=== PATIENT | male | born 1950 | race Caucasian/White ===

== ENCOUNTER 2017-01-02 04:50 | Inpatient (IN) | payer OTHER ==
[~2017-01-02] VITALS: Ht 185.4 cm; Wt 58.4 kg
[~2017-01-02 04:50] MED LIST: ACIDOPHILUS PROB1 MG PO; ADVAIR 250/501 DISK IH; ADVAIR 250/501 DISK PO; ADVAIR HFA120 INHALA IH; AEROECLIPSE1 EACH MC; AMITRIPTYLINE150 MG PO; AMOX TR-K CLV1 EAC4 PO; ASPIRIN E.C.81 M1 PO; AUGMENTIN875 MG PO; Antivert PO; CARDIZEM CD,CA120 MG PO; CARDIZEM30 MG PO; CELEBREX200 MG PO; CLONAZEPAM1 MG PO; COLACE100 MG PO; COMBIVENT RESPIM4 GM IH; Ceftin PO; Colace PO; DALIRESP500 MCG PO; DILTIAZEM 24HR120 MG PO; DULERA 200 MCG/13 GM IH; DUONEB 2.5-0.5 M3 ML AEROSOL; DUONEB 2.5-0.5 M3 ML IH; DuoNeb IH; EVOXAC30 MG PO; Elavil PO; FEOSOL325 MG PO; FEVERALL650 M1 PR; FLORASTOR250 MG PO; GABAPENTIN300 MG PO; GUMMI BEAR MUL1 EACH PO; GUMMY SWIRLS1 EACH PO; HALOPERIDOL2 MG/1 ML PO; HYDRODIURIL,O12.5 M2 PO; HYOSCYAMINE0.125 M2 PO; IPRATR-ALBUTEROL3 ML IH; IRON 100 PLUS1 EACH PO; IRON325 MG PO; KADIAN30 MG PO; KAPIDEX60 MG PO; KLONOPIN1 MG PO; KlonoPIN PO; LANSOPRAZOLE30 MG PO; LAXATIVE SUPPOS10 MG PR; LEVAQUIN250 MG PO; LEVAQUIN500 MG PO; LEVAQUIN750 MG PO; LEVOCETIRIZINE D5 MG PO; LEVOFLOXACIN750 MG PO; LORAZEPAM0.5 MG PO; LYRICA75 MG PO; MEGACE 40 MG40 MG/ML PO; MEGACE ES625 MG/5 M PO; MEGESTROL625 MG/5 M PO; METAXALL800 MG PO; METOCLOPRAMIDE10 MG PO; METOPROLOL TART25 MG PO; MICRO-K10 ME2 PO; MIRALAX17 GM PO; MIRTAZAPINE30 MG PO; MORPHINE CON20 MG/M1 PO; MORPHINE SULFAT30 M2 PO; MORPHINE SULFAT60 MG PO; MUCINEX600 MG PO; MULTI-VITAMIN1 EAC3 PO; NICODERM CQ1 EAC2 TD; NICOTINE PATCH1 EAC2 TD; OXYCODONE HCL10 MG PO; OXYCODONE HCL30 MG PO; OXYCODONE5 MG PO; OXYCONTIN60 MG; OXYCONTIN60 MG PO; POLYETHYLENE GL17 GM PO; PRAVACHOL40 MG PO; PRAVASTATIN SOD40 MG PO; PREDNISONE10 MG PO; PREDNISONE20 MG PO; PREDNISONE5 MG PO; PREVACID; PREVACID30 MG PO; PRILOSEC OTC20 MG PO; PROAIR HFA8.5 GM IH; PROBIOTIC1 EAC1 PO; PROCHLORPERAZIN10 MG PO; REGLAN10 MG PO; REMERON30 M2 PO; SENIOR PROBIOT1 EACH PO; SENNA8.6 M1 PO; SENOKOT,SENN1 TABLET PO; SLOW RELEASE I142 M1 PO; SPIRIVA1 INHALATI IH; THEO-24200 MG PO; THEO-DUR,THEOC200 MG PO; THEOPHYLLINE A200 M1 PO; THEOPHYLLINE A300 M1 PO; TOPAMAX50 MG PO; Tylenol Regular Stre PO; WELLBUTRIN100 MG PO; XYZAL5 MG PO; Zithromax PO
[2017-01-02 05:47] LABS: HEMATOCRIT 39.6 % (38.0-50.0); MCH 24.3 PG (29.0-34.0); MCHC 31.1 G/DL (30.0-36.0); MCV 78.3 FL (86-99); MEAN PLAT.VOLUME 9.7 uM^3 (9.0-12.4); PLATELET COUNT 337 K/uL (156-360); RBC DIS.WIDTH-CV 16.7 % (11.8-14.6); RBC DIS.WIDTH-SD 46.5 % (39-53); RED BLOOD COUNT 5.06 M/uL (4.00-5.50); WHITE BLOOD COUNT 20.4 K/uL (4.1-10.2)
[2017-01-02 05:50] LABS: EOSINOPHIL (%) 0 % (0-5); IMMATURE GRANULOCYTE (%) 0.3 % (0.0-0.7); IMMATURE GRANULOCYTE COUNT 0.6 K/uL; LYMPHOCYTE COUNT 1.1 K/uL (1.0-2.8); MONOCYTE (%) 4.6 % (3-12); MONOCYTE COUNT 0.9 K/uL (0-0.8); NEUTROPHIL (%) 89.8 % (45-76); NEUTROPHIL COUNT 18.3 K/uL (1.8-6.4)
[2017-01-02 05:58] LABS: CHLORIDE 104 mEq/L (99-109); POTASSIUM 3.6 mEq/L (3.7-5.4); SODIUM 142 mEq/L (136-147)
[2017-01-02 06:00] LABS: GLUCOSE 134 mg/dL (70-99)
[2017-01-02 06:01] LABS: ANION GAP 14 MEQ/L (2-14)
[2017-01-02 06:02] LABS: TOTAL BILIRUBIN 0.8 mg/dL (0.0-1.0)
[2017-01-02 06:03] LABS: ALKALINE PHOSPHATASE 106 IU/L (3-129)
[2017-01-02 06:04] LABS: GFR ESTIMATE (CALCULATED) > 59 mL/min/
[2017-01-02 06:05] LABS: UREA NITROGEN (BUN) 18 mg/dL (9-23)
[2017-01-02 06:07] LABS: LIPASE 4 U/L (1.0-51.0); TROP-I INTERPRETATION NEGATIVE; TROPONIN-I < 0.01 ng/mL (0.0-0.30)
[2017-01-02] MEDS ORDERED: ATROVENT H200 INHALA IH (06:08)
[2017-01-02] MEDS ORDERED: SYMBICORT60 INHALAT IH (06:09)
[2017-01-02] MEDS ORDERED: GRALISE600 MG PO (06:14)
[2017-01-02] MEDS ORDERED: MILLIPRED5 MG PO (06:17)
[2017-01-02] MEDS ORDERED: PAIN RELIEF650 MG PO (06:18)
[2017-01-02] MEDS ORDERED: CONSTULOSE10 GM/15 M PO (06:19)
[2017-01-02] MEDS ORDERED: MILK OF MAGN PO ×2 (06:19)
[2017-01-02 06:43] LABS: INFLUENZA A VIRAL ANTIGEN NEGATIVE; INFLUENZA B VIRAL ANTIGEN NEGATIVE
[2017-01-02 09:10] LABS: PREALBUMIN 15.1 mg/dL (10-40)
[2017-01-02 10:30] VITALS: BP 154/85
[2017-01-02] MEDS ORDERED: FEOSOL325 MG PO (16:14)
[2017-01-03 06:25] LABS: HEMATOCRIT 34.4 % (38.0-50.0); MCH 24.2 PG (29.0-34.0); MCHC 30.2 G/DL (30.0-36.0); MEAN PLAT.VOLUME 9.9 uM^3 (9.0-12.4); PLATELET COUNT 275 K/uL (156-360); RBC DIS.WIDTH-CV 16.6 % (11.8-14.6); RBC DIS.WIDTH-SD 48.3 % (39-53); WHITE BLOOD COUNT 14.4 K/uL (4.1-10.2)
[2017-01-03 06:54] LABS: ALKALINE PHOSPHATASE 73 IU/L (3-129); ANION GAP 11 MEQ/L (2-14); CHLORIDE 102 MEQ/L (99-109); GFR ESTIMATE (CALCULATED) > 59 mL/min/; POTASSIUM 3.9 MEQ/L (3.7-5.4); SAMPLE HEMOLYSIS CHECK 0; SAMPLE ICTERIC CHECK 0; SAMPLE LIPEMIA CHECK 0; SODIUM 137 MEQ/L (136-147); TOTAL BILIRUBIN 0.8 MG/DL (0.0-1.0); UREA NITROGEN (BUN) 9 mg/dL (9-23)
[2017-01-03 06:57] LABS: GLUCOSE 70 mg/dL (70-99)
[2017-01-03 08:04] LABS: INTERNAL CONTROL VALID? YES
[2017-01-04] MEDS ORDERED: AMOX TR-K CLV1 EAC4 PO (17:57)
[2017-01-04] MEDS ORDERED: METOCLOPRAMIDE10 MG PO (18:00)
== END 2017-01-04 19:13 | disposition hospice, home (50) | DRG 190 ==
LOC: EME → EDBD 04:50 → 5EAST 08:05 → EDOF 08:05 → 5EAST 10:25
PROVIDERS: Emergency Medicine; Internal Medicine
DX: J44.1 Chronic obstructive pulmonary disease with (acute) exacerbation (principal); J96.21 Acute and chronic respiratory failure with hypoxia; J69.0 Pneumonitis due to inhalation of food and vomit; F33.9 Major depressive disorder, recurrent, unspecified; R64 Cachexia; Z68.1 Body mass index [BMI] 19.9 or less, adult; M87.052 Idiopathic aseptic necrosis of left femur; R62.7 Adult failure to thrive; R13.10 Dysphagia, unspecified; Z51.5 Encounter for palliative care; Z66 Do not resuscitate; E87.6 Hypokalemia; D72.825 Bandemia; K59.00 Constipation, unspecified; K44.9 Diaphragmatic hernia without obstruction or gangrene; Z99.81 Dependence on supplemental oxygen; K21.9 Gastro-esophageal reflux disease without esophagitis; G89.29 Other chronic pain; F41.9 Anxiety disorder, unspecified; Z87.891 Personal history of nicotine dependence; Z82.49 Family history of ischemic heart disease and other diseases of the circulatory system; Z85.01 Personal history of malignant neoplasm of esophagus
CPT/HCPCS: 71020; 71275; 74177; 80053; 83605; 83690; 83880; 84134; 84484; 85025; 85027; 87040; 87449; 87502; 92526 GN; 92610 GN; 93005; 94640; 94640 76; 94799; 99202; 99281; 99285; J0456; J0696; J2405; J2543; J3370; J7030; J7050; S0030

== ENCOUNTER 2017-12-20 21:19 | Inpatient (IN) | payer OTHER ==
[~2017-12-20] VITALS: Ht 185.4 cm; Wt 69.8 kg
[~2017-12-20 21:19] MED LIST changes: +ATROVENT H200 INHALA IH; +CEFTIN500 MG PO; +CONSTULOSE10 GM/15 M PO; +GRALISE600 MG PO; +MILK OF MAGN PO; +MILLIPRED5 MG PO; +PAIN RELIEF650 MG PO; +PROTONIX40 MG PO; +SYMBICORT60 INHALAT IH
[2017-12-20 22:19] LABS: BASOPHIL (%) 0.2 % (0-1); EOSINOPHIL (%) 0.1 % (0-5); HEMATOCRIT 37.6 % (38.0-50.0); IMMATURE GRANULOCYTE (%) 0.6 % (0.0-0.7); LYMPHOCYTE (%) 4.7 % (15-42); LYMPHOCYTE COUNT 0.9 K/uL (1.0-2.8); MCH 22.5 PG (29.0-34.0); MCHC 29.3 G/DL (30.0-36.0); MONOCYTE (%) 5.2 % (3-12); NEUTROPHIL (%) 89.2 % (45-76); NEUTROPHIL COUNT 16.9 K/uL (1.8-6.4); PLATELET COUNT 484 K/uL (156-360); RBC DIS.WIDTH-CV 17.7 % (11.8-14.6); RBC DIS.WIDTH-SD 48.5 % (39-53); RED BLOOD COUNT 4.88 M/uL (4.00-5.50)
[2017-12-20 22:36] LABS: ALBUMIN 3.6 g/dL (3.2-4.8)
[2017-12-20 22:37] LABS: CHLORIDE 99 mEq/L (99-109); SODIUM 136 mEq/L (136-147)
[2017-12-20 22:39] LABS: GLUCOSE 91 mg/dL (70-99); TOTAL PROTEIN 7.1 g/dL (6.4-8.3)
[2017-12-20 22:41] LABS: TOTAL BILIRUBIN 1.5 mg/dL (0.0-1.0)
[2017-12-20 22:42] LABS: ALKALINE PHOSPHATASE 141 IU/L (3-129)
[2017-12-20 22:43] LABS: CREATININE 0.8 mg/dL (0.6-1.3); GFR ESTIMATE (CALCULATED) > 59 mL/min/ (58.99-99999)
[2017-12-20 22:44] LABS: AST (GOT) 10 IU/L (2-34); UREA NITROGEN (BUN) 15 mg/dL (9-23)
[2017-12-20 22:46] LABS: ALT (GPT) 17 IU/L (3-49)
[2017-12-20 22:53] LABS: TROP-I INTERPRETATION NEGATIVE; TROPONIN-I < 0.01 ng/mL (0.0-0.30)
[2017-12-20] MEDS ORDERED: PANTOPRAZOLE SO40 MG PO (23:35)
[2017-12-20] MEDS ORDERED: GABAPENTIN100 MG PO (23:37)
[2017-12-20] MEDS ORDERED: HYDROCHLOROTHIA25 MG PO (23:38)
[2017-12-20] MEDS ORDERED: SPIRIVA1 INHALATI IH (23:40)
[2017-12-20] MEDS ORDERED: PREDNISONE10 MG PO (23:40)
[2017-12-20] MEDS ORDERED: PREDNISONE1 MG PO (23:41)
[2017-12-20] MEDS ORDERED: DILTIAZEM 24HR120 MG PO (23:41)
[2017-12-21 01:08] LABS: BASE EXCESS -8.8 mEq/L (-3 to +3); BICARBONATE 16.6 mEq/L (22-26); COMMENTS - BLOOD GASES C; METHEMOGLOBIN 0.8 % (0-1.5); PCO2 33 mm Hg (35-45); PO2 81 mm Hg (80-100); SITE RB; pH 7.31 (7.35-7.45)
[2017-12-21 01:09] LABS: DEVICE NCH; O2 FLOW 10 L/MIN; TOTAL RESP RATE 21 resp/min
[2017-12-21 03:36] VITALS: BP 116/74
[2017-12-21 05:47] LABS: BASOPHIL (%) 0.2 % (0-1); EOSINOPHIL (%) 0.1 % (0-5); HEMATOCRIT 34.8 % (38.0-50.0); IMMATURE GRANULOCYTE (%) 0.9 % (0.0-0.7); LYMPHOCYTE (%) 1.5 % (15-42); LYMPHOCYTE COUNT 0.2 K/uL (1.0-2.8); MCH 21.9 PG (29.0-34.0); MCHC 28.7 G/DL (30.0-36.0); MCV 76.3 FL (86-99); MONOCYTE (%) 0.7 % (3-12); MONOCYTE COUNT 0.1 K/uL (0-0.8); NEUTROPHIL (%) 96.6 % (45-76); NEUTROPHIL COUNT 15.2 K/uL (1.8-6.4); PLATELET COUNT 438 K/uL (156-360); RBC DIS.WIDTH-CV 17.4 % (11.8-14.6); RBC DIS.WIDTH-SD 47.8 % (39-53); RED BLOOD COUNT 4.56 M/uL (4.00-5.50); WHITE BLOOD COUNT 15.8 K/uL (4.1-10.2)
[2017-12-21 06:20] LABS: CHLORIDE 102 MEQ/L (99-109); CREATININE 0.7 MG/DL (0.6-1.3); GFR ESTIMATE (CALCULATED) > 59 mL/min/ (58.99-99999); POTASSIUM 4.1 MEQ/L (3.7-5.4); SODIUM 136 MEQ/L (136-147); UREA NITROGEN (BUN) 16 mg/dL (9-23)
[2017-12-21 06:36] LABS: GLUCOSE 269 mg/dL (70-99)
[2017-12-21 08:54] VITALS: BP 131/84
[2017-12-21 11:45] VITALS: BP 147/82
[2017-12-21 16:52] VITALS: BP 135/81
[2017-12-21 18:55] VITALS: BP 137/78
[2017-12-21 23:31] VITALS: BP 149/88
[2017-12-22 03:40] VITALS: BP 155/89
[2017-12-22 06:21] LABS: BASOPHIL (%) 0.1 % (0-1); EOSINOPHIL (%) 0 % (0-5); HEMATOCRIT 34.9 % (38.0-50.0); HEMOGLOBIN 10.2 G/DL (12.5-16.6); IMMATURE GRANULOCYTE (%) 0.6 % (0.0-0.7); LYMPHOCYTE (%) 2.9 % (15-42); LYMPHOCYTE COUNT 0.5 K/uL (1.0-2.8); MCH 22.4 PG (29.0-34.0); MCHC 29.2 G/DL (30.0-36.0); MCV 76.5 FL (86-99); MONOCYTE (%) 2.9 % (3-12); MONOCYTE COUNT 0.5 K/uL (0-0.8); NEUTROPHIL (%) 93.5 % (45-76); PLATELET COUNT 415 K/uL (156-360); RBC DIS.WIDTH-CV 17.4 % (11.8-14.6); RBC DIS.WIDTH-SD 47.7 % (39-53); RED BLOOD COUNT 4.56 M/uL (4.00-5.50); WHITE BLOOD COUNT 16.1 K/uL (4.1-10.2)
[2017-12-22 06:30] LABS: ALBUMIN 3.4 G/DL (3.2-4.8); ALKALINE PHOSPHATASE 118 IU/L (3-129); ALT (GPT) 13 IU/L (3-49); AST (GOT) 11 IU/L (2-34); CHLORIDE 107 MEQ/L (99-109); CREATININE 0.6 MG/DL (0.6-1.3); GFR ESTIMATE (CALCULATED) > 59 mL/min/ (58.99-99999); GLUCOSE 176 mg/dL (70-99); POTASSIUM 4.2 MEQ/L (3.7-5.4); TOTAL BILIRUBIN 0.4 MG/DL (0.0-1.0); TOTAL PROTEIN 6.4 G/DL (6.4-8.3); UREA NITROGEN (BUN) 13 mg/dL (9-23)
[2017-12-22 06:32] LABS: SODIUM 143 MEQ/L (136-147)
[2017-12-22 07:16] VITALS: BP 145/95
[2017-12-22 11:17] VITALS: BP 134/85
[2017-12-22 16:09] VITALS: BP 137/88
[2017-12-23] VITALS: BP 147/88
[2017-12-23 06:48] LABS: BASOPHIL (%) 0.1 % (0-1); EOSINOPHIL (%) 0 % (0-5); HEMATOCRIT 30.4 % (38.0-50.0); HEMOGLOBIN 8.6 G/DL (12.5-16.6); IMMATURE GRANULOCYTE (%) 0.5 % (0.0-0.7); LYMPHOCYTE (%) 1.9 % (15-42); LYMPHOCYTE COUNT 0.3 K/uL (1.0-2.8); MCH 21.9 PG (29.0-34.0); MCHC 28.3 G/DL (30.0-36.0); MCV 77.4 FL (86-99); MONOCYTE (%) 2.1 % (3-12); MONOCYTE COUNT 0.3 K/uL (0-0.8); NEUTROPHIL (%) 95.4 % (45-76); NEUTROPHIL COUNT 15.3 K/uL (1.8-6.4); PLATELET COUNT 361 K/uL (156-360); RBC DIS.WIDTH-CV 17.3 % (11.8-14.6); RBC DIS.WIDTH-SD 48.9 % (39-53); RED BLOOD COUNT 3.93 M/uL (4.00-5.50)
[2017-12-23 07:20] LABS: ALBUMIN 3.2 G/DL (3.2-4.8); ALKALINE PHOSPHATASE 94 IU/L (3-129); ALT (GPT) 16 IU/L (3-49); AST (GOT) 14 IU/L (2-34); CHLORIDE 109 MEQ/L (99-109); CREATININE 0.7 MG/DL (0.6-1.3); GFR ESTIMATE (CALCULATED) > 59 mL/min/ (58.99-99999); GLUCOSE 164 mg/dL (70-99); POTASSIUM 4.4 MEQ/L (3.7-5.4); SODIUM 145 MEQ/L (136-147); TOTAL PROTEIN 5.8 G/DL (6.4-8.3); UREA NITROGEN (BUN) 19 mg/dL (9-23)
[2017-12-23 07:22] LABS: TOTAL BILIRUBIN 0.3 MG/DL (0.0-1.0)
[2017-12-23 07:55] VITALS: BP 153/93
[2017-12-23 09:49] LABS: IMM.RETIC FRACTION 16.9 % (3-19); RETIC HGB EQUIVALENT 23.5 (28-36)
[2017-12-23 12:16] LABS: FOLIC ACID (FOLATE) 8.5 NG/ML (5.0-22.0)
[2017-12-23 13:10] LABS: FERRITIN 73 NG/ML (22-322); IRON 15 MCG/DL (35-150); TRANSFERRIN (TIBC) 254.1 mg/dL (215-380); TRANSFERRIN SATUR. 6 % (20-55)
[2017-12-23 16:12] VITALS: BP 151/86
[2017-12-24] VITALS: BP 148/97
[2017-12-24 07:09] LABS: BASOPHIL (%) 0.1 % (0-1); EOSINOPHIL (%) 0 % (0-5); HEMOGLOBIN 8.7 G/DL (12.5-16.6); IMMATURE GRANULOCYTE (%) 0.7 % (0.0-0.7); LYMPHOCYTE (%) 2.3 % (15-42); LYMPHOCYTE COUNT 0.4 K/uL (1.0-2.8); MCH 22.5 PG (29.0-34.0); MCV 77.7 FL (86-99); MONOCYTE (%) 1.6 % (3-12); MONOCYTE COUNT 0.3 K/uL (0-0.8); NEUTROPHIL (%) 95.3 % (45-76); NEUTROPHIL COUNT 14.6 K/uL (1.8-6.4); PLATELET COUNT 308 K/uL (156-360); RBC DIS.WIDTH-CV 17.7 % (11.8-14.6); RBC DIS.WIDTH-SD 49.2 % (39-53); RED BLOOD COUNT 3.86 M/uL (4.00-5.50); WHITE BLOOD COUNT 15.3 K/uL (4.1-10.2)
[2017-12-24 07:34] VITALS: BP 164/88
[2017-12-24 07:42] LABS: ALBUMIN 3.1 G/DL (3.2-4.8); ALKALINE PHOSPHATASE 78 IU/L (3-129); ALT (GPT) 17 IU/L (3-49); AST (GOT) 11 IU/L (2-34); CHLORIDE 106 MEQ/L (99-109); CREATININE 0.6 MG/DL (0.6-1.3); GFR ESTIMATE (CALCULATED) > 59 mL/min/ (58.99-99999); GLUCOSE 173 mg/dL (70-99); POTASSIUM 3.7 MEQ/L (3.7-5.4); SODIUM 144 MEQ/L (136-147); TOTAL PROTEIN 5.9 G/DL (6.4-8.3); UREA NITROGEN (BUN) 23 mg/dL (9-23)
[2017-12-24 07:45] LABS: TOTAL BILIRUBIN 0.2 MG/DL (0.0-1.0)
[2017-12-24 15:48] VITALS: BP 135/81
[2017-12-24 23:46] VITALS: BP 165/96
[2017-12-25 06:38] LABS: BASOPHIL (%) 0.1 % (0-1); EOSINOPHIL (%) 0 % (0-5); HEMATOCRIT 29.6 % (38.0-50.0); HEMOGLOBIN 8.5 G/DL (12.5-16.6); IMMATURE GRANULOCYTE (%) 1.6 % (0.0-0.7); LYMPHOCYTE (%) 3.1 % (15-42); LYMPHOCYTE COUNT 0.4 K/uL (1.0-2.8); MCH 22.5 PG (29.0-34.0); MCHC 28.7 G/DL (30.0-36.0); MCV 78.5 FL (86-99); MONOCYTE (%) 1.1 % (3-12); MONOCYTE COUNT 0.2 K/uL (0-0.8); NEUTROPHIL (%) 94.1 % (45-76); NEUTROPHIL COUNT 13.3 K/uL (1.8-6.4); PLATELET COUNT 300 K/uL (156-360); RBC DIS.WIDTH-CV 17.6 % (11.8-14.6); RBC DIS.WIDTH-SD 50.1 % (39-53); RED BLOOD COUNT 3.77 M/uL (4.00-5.50); WHITE BLOOD COUNT 14.1 K/uL (4.1-10.2)
[2017-12-25 07:15] LABS: CHLORIDE 102 MEQ/L (99-109); CREATININE 0.6 MG/DL (0.6-1.3); GFR ESTIMATE (CALCULATED) > 59 mL/min/ (58.99-99999); GLUCOSE 165 mg/dL (70-99); POTASSIUM 4.1 MEQ/L (3.7-5.4); SODIUM 143 MEQ/L (136-147); UREA NITROGEN (BUN) 20 mg/dL (9-23)
[2017-12-25 08:18] VITALS: BP 186/93
[2017-12-25 16:43] VITALS: BP 159/85
[2017-12-26 00:03] VITALS: BP 174/92
[2017-12-26 06:50] LABS: BASOPHIL (%) 0.1 % (0-1); EOSINOPHIL (%) 0 % (0-5); HEMATOCRIT 30.1 % (38.0-50.0); HEMOGLOBIN 8.7 G/DL (12.5-16.6); IMMATURE GRANULOCYTE (%) 2.2 % (0.0-0.7); LYMPHOCYTE (%) 3.7 % (15-42); LYMPHOCYTE COUNT 0.5 K/uL (1.0-2.8); MCH 22.3 PG (29.0-34.0); MCHC 28.9 G/DL (30.0-36.0); MCV 77.2 FL (86-99); MONOCYTE (%) 2.5 % (3-12); MONOCYTE COUNT 0.4 K/uL (0-0.8); NEUTROPHIL (%) 91.5 % (45-76); NRBC (%) 0.1 /100 WBC (0-0); PLATELET COUNT 330 K/uL (156-360); RBC DIS.WIDTH-CV 17.3 % (11.8-14.6); RBC DIS.WIDTH-SD 48.2 % (39-53); WHITE BLOOD COUNT 14.2 K/uL (4.1-10.2)
[2017-12-26 07:03] LABS: CHLORIDE 99 MEQ/L (99-109); CREATININE 0.6 MG/DL (0.6-1.3); GFR ESTIMATE (CALCULATED) > 59 mL/min/ (58.99-99999); GLUCOSE 147 mg/dL (70-99); POTASSIUM 4.3 MEQ/L (3.7-5.4); SODIUM 141 MEQ/L (136-147); UREA NITROGEN (BUN) 17 mg/dL (9-23)
[2017-12-26 08:21] VITALS: BP 163/95
[2017-12-26 16:42] VITALS: BP 137/88
[2017-12-27] VITALS: BP 147/85
[2017-12-27 06:15] LABS: BASOPHIL (%) 0.1 % (0-1); EOSINOPHIL (%) 0 % (0-5); HEMOGLOBIN 8.7 G/DL (12.5-16.6); IMMATURE GRANULOCYTE (%) 1.9 % (0.0-0.7); LYMPHOCYTE COUNT 0.4 K/uL (1.0-2.8); MCH 22.3 PG (29.0-34.0); MCV 76.7 FL (86-99); MONOCYTE (%) 3.2 % (3-12); MONOCYTE COUNT 0.5 K/uL (0-0.8); NEUTROPHIL (%) 91.8 % (45-76); NEUTROPHIL COUNT 12.8 K/uL (1.8-6.4); NRBC (%) 0.1 /100 WBC (0-0); PLATELET COUNT 345 K/uL (156-360); RBC DIS.WIDTH-CV 17.6 % (11.8-14.6); RBC DIS.WIDTH-SD 48.4 % (39-53); RED BLOOD COUNT 3.91 M/uL (4.00-5.50)
[2017-12-27 06:39] LABS: CHLORIDE 99 MEQ/L (99-109); CREATININE 0.6 MG/DL (0.6-1.3); GFR ESTIMATE (CALCULATED) > 59 mL/min/ (58.99-99999); GLUCOSE 136 mg/dL (70-99); POTASSIUM 4.5 MEQ/L (3.7-5.4); SODIUM 140 MEQ/L (136-147); UREA NITROGEN (BUN) 20 mg/dL (9-23)
[2017-12-27 08:00] VITALS: BP 154/91
[2017-12-27 16:00] VITALS: BP 140/90
[2017-12-28 01:03] VITALS: BP 170/92
[2017-12-28 08:52] VITALS: BP 162/94
[2017-12-29 00:38] VITALS: BP 150/88
[2017-12-29 06:08] LABS: HEMATOCRIT 30.3 % (38.0-50.0); HEMOGLOBIN 8.9 G/DL (12.5-16.6); MCH 22.8 PG (29.0-34.0); MCHC 29.4 G/DL (30.0-36.0); MCV 77.7 FL (86-99); PLATELET COUNT 343 K/uL (156-360); RBC DIS.WIDTH-CV 18.4 % (11.8-14.6); RBC DIS.WIDTH-SD 49.9 % (39-53)
[2017-12-29 07:30] VITALS: BP 157/94
[2017-12-29] MEDS ORDERED: CYANOCOBALAM1000 MCG PO (12:02)
[2017-12-29] MEDS ORDERED: FERROUS SULFAT325 MG PO (12:02)
[2017-12-29] MEDS ORDERED: PREDNISONE10 MG PO (12:02)
[2017-12-29] MEDS ORDERED: AMOX TR-K CLV1 EAC4 PO (12:02)
[2017-12-29] MEDS ORDERED: FOLIC ACID1 MG PO (12:02)
[2017-12-29] MEDS ORDERED: BISACODYL5 MG PO (12:02)
[2017-12-29] MEDS ORDERED: POLYETHYLENE GL17 GM PO (12:02)
[2017-12-29] MEDS ORDERED: GABAPENTIN100 MG PO (12:53)
[2017-12-29] MEDS ORDERED: OXYCODONE HCL10 MG PO (12:53)
[2017-12-29] MEDS ORDERED: MORPHINE SULFAT60 MG PO (12:53)
== END 2017-12-29 15:09 | DRG 871 ==
LOC: EME → EDBD 21:19 → EME 21:19 → 4EAST 12-21 00:57 → EDOF 12-21 00:57 → 5SOUTH 12-21 00:57 → ENRESERV 12-21 00:58 → 4EAST 12-21 03:29 → ENRESERV 12-22 15:40 → 5SOUTH 12-22 16:53
PROVIDERS: Emergency Medicine Emergency Medical Services; Hospitalist; Internal Medicine
DX: A41.9 Sepsis, unspecified organism (principal); J69.0 Pneumonitis due to inhalation of food and vomit; J96.21 Acute and chronic respiratory failure with hypoxia; J44.1 Chronic obstructive pulmonary disease with (acute) exacerbation; D64.9 Anemia, unspecified; G89.29 Other chronic pain; F11.20 Opioid dependence, uncomplicated; F41.9 Anxiety disorder, unspecified; K59.00 Constipation, unspecified; F32.9 Major depressive disorder, single episode, unspecified; K21.9 Gastro-esophageal reflux disease without esophagitis; M48.54XD Collapsed vertebra, not elsewhere classified, thoracic region, subsequent encounter for fracture with routine healing; Z92.3 Personal history of irradiation; Z85.01 Personal history of malignant neoplasm of esophagus; Z92.21 Personal history of antineoplastic chemotherapy; Z87.891 Personal history of nicotine dependence; Z87.442 Personal history of urinary calculi; Z86.718 Personal history of other venous thrombosis and embolism; Z82.49 Family history of ischemic heart disease and other diseases of the circulatory system; Z99.81 Dependence on supplemental oxygen; Z79.52 Long term (current) use of systemic steroids; J98.11 Atelectasis; Z98.1 Arthrodesis status
CPT/HCPCS: 36600; 71045; 71046; 71275; 74230; 80048; 80053; 82607; 82728; 82746; 82803; 83540; 83605; 83880; 84466; 84484; 85025; 85027; 85046; 87040; 87070; 87205; 87449; 87502; 92610 GN; 92611 GN; 93005; 94002; 94640; 94640 76; 94667; 94668; 94760; 94799; 97530 GP; 99202; 99281; 99285; J0295; J0456; J1100; J1650; J1940; J2920; J2930; J3370; J3475; J7030; J7040; J7050; J7512; J7644

== ENCOUNTER 2018-01-01 16:20 | Inpatient (IN) | payer OTHER ==
[~2018-01-01] VITALS: Ht 185.4 cm; Wt 57.3 kg
[~2018-01-01 16:20] MED LIST changes: +ACETAMINOPHEN325 M1 PO; +BISACODYL5 MG PO; +CYANOCOBALAM1000 MCG PO; +FERROUS SULFAT325 MG PO; +FOLIC ACID1 MG PO; +GABAPENTIN100 MG PO; +HYDROCHLOROTHIA25 MG PO; -PAIN RELIEF650 MG PO; +PANTOPRAZOLE SO40 MG PO; +PREDNISONE1 MG PO
[2018-01-01 16:48] LABS: BASE EXCESS 12.2 mEq/L (-3 to +3); BICARBONATE 37.7 mEq/L (22-26); COMMENTS - BLOOD GASES +C; METHEMOGLOBIN 1.2 % (0-1.5); O2 FLOW 20 L/MIN; PCO2 53 mm Hg (35-45); PO2 234 mm Hg (80-100); SITE LR +A; pH 7.46 (7.35-7.45)
[2018-01-01 16:49] LABS: DEVICE NRBM; FI02 100 %; TOTAL RESP RATE 18 resp/min
[2018-01-01 17:15] LABS: BASOPHIL (%) 0.1 % (0-1); EOSINOPHIL (%) 0.1 % (0-5); HEMATOCRIT 36.1 % (38.0-50.0); HEMOGLOBIN 10.7 G/DL (12.5-16.6); IMMATURE GRANULOCYTE (%) 0.9 % (0.0-0.7); LYMPHOCYTE (%) 4.9 % (15-42); LYMPHOCYTE COUNT 1.4 K/uL (1.0-2.8); MCHC 29.6 G/DL (30.0-36.0); MCV 77.5 FL (86-99); MONOCYTE (%) 4.4 % (3-12); MONOCYTE COUNT 1.3 K/uL (0-0.8); NEUTROPHIL (%) 89.6 % (45-76); NEUTROPHIL COUNT 25.2 K/uL (1.8-6.4); PLATELET COUNT 438 K/uL (156-360); RBC DIS.WIDTH-CV 19.9 % (11.8-14.6); RBC DIS.WIDTH-SD 52.8 % (39-53); RED BLOOD COUNT 4.66 M/uL (4.00-5.50); WHITE BLOOD COUNT 28.1 K/uL (4.1-10.2)
[2018-01-01 17:24] LABS: CHLORIDE 94 mEq/L (99-109); SODIUM 139 mEq/L (136-147)
[2018-01-01 17:29] LABS: CREATININE 0.7 mg/dL (0.6-1.3); GFR ESTIMATE (CALCULATED) > 59 mL/min/ (58.99-99999)
[2018-01-01 17:30] LABS: UREA NITROGEN (BUN) 15 mg/dL (9-23)
[2018-01-01 17:32] LABS: GLUCOSE 90 mg/dL (70-99); POTASSIUM 3.5 mEq/L (3.7-5.4)
[2018-01-01 17:37] LABS: TROP-I INTERPRETATION NEGATIVE; TROPONIN-I < 0.01 ng/mL (0.0-0.30)
[2018-01-01] MEDS ORDERED: MORPHINE SULFAT30 M2 PO (21:46)
[2018-01-01] MEDS ORDERED: PREDNISONE10 MG PO (22:10)
[2018-01-01] MEDS ORDERED: OMEPRAZOLE20 MG PO (22:12)
[2018-01-01] MEDS ORDERED: INCRUSE ELLI62.5 MCG IH (22:15)
[2018-01-01] MEDS ORDERED: BREO ELLIPTA I1 EACH IH (22:17)
[2018-01-01] MEDS ORDERED: MORPHINE SULFAT90 MG PO (22:18)
[2018-01-02 02:05] LABS: APPEARANCE CLEAR ((CLEAR)); BILIRUBIN NEGATIVE; BLOOD NEGATIVE; COLOR STRAW ((YELLOW)); GLUCOSE (STRIP) NEGATIVE; KETONES NEGATIVE; LEUKOCYTES NEGATIVE; NITRITE NEGATIVE; PROTEIN (STRIP) NEGATIVE; SPECIFIC GRAVITY 1.008 (1.000-1.030); UCUL ADDED? NO; UROBILINOGEN 0.2 MG/DL (0.2-1.0)
[2018-01-02 05:02] LABS: BASOPHIL (%) 0.1 % (0-1); EOSINOPHIL (%) 0 % (0-5); HEMATOCRIT 32.9 % (38.0-50.0); HEMOGLOBIN 9.7 G/DL (12.5-16.6); IMMATURE GRANULOCYTE (%) 0.9 % (0.0-0.7); LYMPHOCYTE (%) 1.3 % (15-42); LYMPHOCYTE COUNT 0.3 K/uL (1.0-2.8); MCH 22.9 PG (29.0-34.0); MCHC 29.5 G/DL (30.0-36.0); MCV 77.6 FL (86-99); MONOCYTE (%) 0.3 % (3-12); MONOCYTE COUNT 0.1 K/uL (0-0.8); NEUTROPHIL (%) 97.4 % (45-76); NEUTROPHIL COUNT 25.4 K/uL (1.8-6.4); PLATELET COUNT 419 K/uL (156-360); RBC DIS.WIDTH-CV 19.9 % (11.8-14.6); RBC DIS.WIDTH-SD 53.1 % (39-53); RED BLOOD COUNT 4.24 M/uL (4.00-5.50); WHITE BLOOD COUNT 26.1 K/uL (4.1-10.2)
[2018-01-02 05:14] LABS: CHLORIDE 98 mEq/L (99-109); POTASSIUM 4.2 mEq/L (3.7-5.4); SODIUM 138 mEq/L (136-147)
[2018-01-02 05:20] LABS: CREATININE 0.7 mg/dL (0.6-1.3); GFR ESTIMATE (CALCULATED) > 59 mL/min/ (58.99-99999)
[2018-01-02 05:21] LABS: UREA NITROGEN (BUN) 14 mg/dL (9-23)
[2018-01-02 05:23] LABS: GLUCOSE 155 mg/dL (70-99)
[2018-01-02 16:00] VITALS: BP 137/83
[2018-01-02 20:08] VITALS: BP 124/74
[2018-01-03] VITALS (18 sets, daily range): BP systolic 105–157; BP diastolic 71–108
[2018-01-03 05:45] LABS: BASOPHIL (%) 0.1 % (0-1); BASOPHIL COUNT 0.1 K/uL (0-0.1); EOSINOPHIL (%) 0 % (0-5); IMMATURE GRANULOCYTE (%) 1.1 % (0.0-0.7); LYMPHOCYTE (%) 0.3 % (15-42); LYMPHOCYTE COUNT 0.1 K/uL (1.0-2.8); MONOCYTE (%) 2.7 % (3-12); MONOCYTE COUNT 0.9 K/uL (0-0.8); NEUTROPHIL (%) 95.8 % (45-76); NEUTROPHIL COUNT 32.2 K/uL (1.8-6.4); PLATELET COUNT 526 K/uL (156-360)
[2018-01-03 05:47] LABS: HEMATOCRIT 33.8 % (38.0-50.0); MCH 22.9 PG (29.0-34.0); MCHC 29.6 G/DL (30.0-36.0); MCV 77.5 FL (86-99); RBC DIS.WIDTH-SD 54.5 % (39-53); RED BLOOD COUNT 4.36 M/uL (4.00-5.50)
[2018-01-03 05:48] LABS: WHITE BLOOD COUNT 33.6 K/uL (4.1-10.2)
[2018-01-03 06:08] LABS: CHLORIDE 94 MEQ/L (99-109); CREATININE 0.7 MG/DL (0.6-1.3); GFR ESTIMATE (CALCULATED) > 59 mL/min/ (58.99-99999); GLUCOSE 154 mg/dL (70-99); POTASSIUM 4.3 MEQ/L (3.7-5.4); SODIUM 137 MEQ/L (136-147); UREA NITROGEN (BUN) 15 mg/dL (9-23)
[2018-01-03 08:08] LABS: BASE EXCESS 8.3 mEq/L (-3 to +3); CARBOXY HGB 2.4 % (0-5); METHEMOGLOBIN 2.2 % (0-1.5); pH 7.52 (7.35-7.45)
[2018-01-03 08:09] LABS: BICARBONATE 31.8 mEq/L (22-26); COMMENTS - BLOOD GASES A+C+; DEVICE HFNC; O2 FLOW 8 L/MIN; PCO2 39 mm Hg (35-45); PO2 51 mm Hg (80-100); SITE LRA; TOTAL RESP RATE 22 resp/min
[2018-01-04] VITALS (14 sets, daily range): BP systolic 98–138; BP diastolic 76–94
[2018-01-04 05:54] LABS: HEMATOCRIT 30.6 % (38.0-50.0); HEMOGLOBIN 9.2 G/DL (12.5-16.6); MCH 23.4 PG (29.0-34.0); MCHC 30.1 G/DL (30.0-36.0); MCV 77.7 FL (86-99); PLATELET COUNT 399 K/uL (156-360); RBC DIS.WIDTH-CV 20.1 % (11.8-14.6); RBC DIS.WIDTH-SD 54.6 % (39-53); RED BLOOD COUNT 3.94 M/uL (4.00-5.50); WHITE BLOOD COUNT 23.9 K/uL (4.1-10.2)
[2018-01-04 06:33] LABS: CHLORIDE 94 MEQ/L (99-109); CREATININE 0.5 MG/DL (0.6-1.3); GFR ESTIMATE (CALCULATED) > 59 mL/min/ (58.99-99999); SODIUM 135 MEQ/L (136-147); UREA NITROGEN (BUN) 18 mg/dL (9-23)
[2018-01-04 06:34] LABS: GLUCOSE 109 mg/dL (70-99)
[2018-01-04 09:24] LABS: BASE EXCESS 10.3 mEq/L (-3 to +3); BICARBONATE 34.3 mEq/L (22-26); CARBOXY HGB 1.9 % (0-5); METHEMOGLOBIN 1.6 % (0-1.5); PCO2 43 mm Hg (35-45); PO2 58 mm Hg (80-100); pH 7.51 (7.35-7.45)
[2018-01-04 09:25] LABS: COMMENTS - BLOOD GASES A+C+; DEVICE NC; O2 FLOW 4 L/MIN; SITE RR; TOTAL RESP RATE 13 resp/min
[2018-01-04 13:56] LABS: BASOPHIL (%) 0.1 % (0-1); EOSINOPHIL (%) 0 % (0-5); LYMPHOCYTE (%) 0.5 % (15-42); LYMPHOCYTE COUNT 0.1 K/uL (1.0-2.8); MONOCYTE (%) 1.5 % (3-12); MONOCYTE COUNT 0.4 K/uL (0-0.8); NEUTROPHIL (%) 96.9 % (45-76); NEUTROPHIL COUNT 23.2 K/uL (1.8-6.4)
[2018-01-05 07:03] LABS: BASOPHIL (%) 0.1 % (0-1); EOSINOPHIL (%) 0.1 % (0-5); HEMATOCRIT 31.9 % (38.0-50.0); HEMOGLOBIN 9.5 G/DL (12.5-16.6); IMMATURE GRANULOCYTE (%) 0.6 % (0.0-0.7); LYMPHOCYTE (%) 0.8 % (15-42); LYMPHOCYTE COUNT 0.1 K/uL (1.0-2.8); MCH 22.7 PG (29.0-34.0); MCHC 29.8 G/DL (30.0-36.0); MCV 76.1 FL (86-99); MONOCYTE (%) 2.2 % (3-12); MONOCYTE COUNT 0.4 K/uL (0-0.8); NEUTROPHIL (%) 96.2 % (45-76); NEUTROPHIL COUNT 16.4 K/uL (1.8-6.4); PLATELET COUNT 384 K/uL (156-360); RED BLOOD COUNT 4.19 M/uL (4.00-5.50); WHITE BLOOD COUNT 17.1 K/uL (4.1-10.2)
[2018-01-05 07:26] LABS: ALBUMIN 3.2 G/DL (3.2-4.8); ALKALINE PHOSPHATASE 102 IU/L (3-129); ALT (GPT) 17 IU/L (3-49); AST (GOT) 20 IU/L (2-34); CHLORIDE 90 MEQ/L (99-109); CREATININE 0.5 MG/DL (0.6-1.3); GFR ESTIMATE (CALCULATED) > 59 mL/min/ (58.99-99999); GLUCOSE 134 mg/dL (70-99); POTASSIUM 3.7 MEQ/L (3.7-5.4); SODIUM 135 MEQ/L (136-147); TOTAL BILIRUBIN 0.7 MG/DL (0.0-1.0); TOTAL PROTEIN 5.6 G/DL (6.4-8.3); UREA NITROGEN (BUN) 22 mg/dL (9-23)
[2018-01-05 08:57] VITALS: BP 134/96
[2018-01-05 18:18] VITALS: BP 134/93
[2018-01-05 23:45] VITALS: BP 119/74
[2018-01-06 07:37] LABS: BASOPHIL (%) 0 % (0-1); EOSINOPHIL (%) 0 % (0-5); HEMATOCRIT 30.5 % (38.0-50.0); HEMOGLOBIN 8.9 G/DL (12.5-16.6); IMMATURE GRANULOCYTE (%) 0.4 % (0.0-0.7); LYMPHOCYTE (%) 2.4 % (15-42); LYMPHOCYTE COUNT 0.3 K/uL (1.0-2.8); MCH 22.5 PG (29.0-34.0); MCHC 29.2 G/DL (30.0-36.0); MONOCYTE (%) 2.8 % (3-12); MONOCYTE COUNT 0.4 K/uL (0-0.8); NEUTROPHIL (%) 94.4 % (45-76); NEUTROPHIL COUNT 12.4 K/uL (1.8-6.4); PLATELET COUNT 317 K/uL (156-360); RBC DIS.WIDTH-CV 19.5 % (11.8-14.6); RED BLOOD COUNT 3.96 M/uL (4.00-5.50); WHITE BLOOD COUNT 13.2 K/uL (4.1-10.2)
[2018-01-06 08:02] LABS: ALBUMIN 2.9 G/DL (3.2-4.8); ALKALINE PHOSPHATASE 85 IU/L (3-129); ALT (GPT) 15 IU/L (3-49); AST (GOT) 15 IU/L (2-34); CHLORIDE 93 MEQ/L (99-109); CREATININE 0.6 MG/DL (0.6-1.3); GFR ESTIMATE (CALCULATED) > 59 mL/min/ (58.99-99999); GLUCOSE 172 mg/dL (70-99); POTASSIUM 3.9 MEQ/L (3.7-5.4); SODIUM 136 MEQ/L (136-147); TOTAL BILIRUBIN 0.4 MG/DL (0.0-1.0); TOTAL PROTEIN 5.1 G/DL (6.4-8.3); UREA NITROGEN (BUN) 20 mg/dL (9-23)
[2018-01-06 09:32] VITALS: BP 119/78
[2018-01-06 17:25] VITALS: BP 129/92
[2018-01-06 19:35] VITALS: BP 130/83
[2018-01-06 23:25] VITALS: BP 139/96
[2018-01-07 07:40] VITALS: BP 154/92
[2018-01-07 16:13] VITALS: BP 143/90
[2018-01-08 03:25] VITALS: BP 143/86
[2018-01-08 06:43] LABS: HEMATOCRIT 26.8 % (38.0-50.0); HEMOGLOBIN 7.8 G/DL (12.5-16.6); MCH 22.8 PG (29.0-34.0); MCHC 29.1 G/DL (30.0-36.0); MCV 78.4 FL (86-99); PLATELET COUNT 261 K/uL (156-360); RBC DIS.WIDTH-CV 19.7 % (11.8-14.6); RBC DIS.WIDTH-SD 55.3 % (39-53); RED BLOOD COUNT 3.42 M/uL (4.00-5.50); WHITE BLOOD COUNT 9.2 K/uL (4.1-10.2)
[2018-01-08 07:15] LABS: ALBUMIN 2.6 G/DL (3.2-4.8); ALKALINE PHOSPHATASE 76 IU/L (3-129); ALT (GPT) 18 IU/L (3-49); AST (GOT) 14 IU/L (2-34); CHLORIDE 96 MEQ/L (99-109); CREATININE 0.5 MG/DL (0.6-1.3); GFR ESTIMATE (CALCULATED) > 59 mL/min/ (58.99-99999); GLUCOSE 83 mg/dL (70-99); POTASSIUM 3.7 MEQ/L (3.7-5.4); SODIUM 139 MEQ/L (136-147); TOTAL BILIRUBIN 0.3 MG/DL (0.0-1.0); TOTAL PROTEIN 4.7 G/DL (6.4-8.3); UREA NITROGEN (BUN) 13 mg/dL (9-23)
[2018-01-08 07:17] LABS: BASOPHIL (%) 0 % (0-1); EOSINOPHIL (%) 0.1 % (0-5); IMMATURE GRANULOCYTE (%) 0.5 % (0.0-0.7); LYMPHOCYTE (%) 9.3 % (15-42); LYMPHOCYTE COUNT 0.9 K/uL (1.0-2.8); MONOCYTE (%) 2.4 % (3-12); MONOCYTE COUNT 0.2 K/uL (0-0.8); NEUTROPHIL (%) 87.7 % (45-76); NEUTROPHIL COUNT 8.1 K/uL (1.8-6.4)
[2018-01-08 08:00] VITALS: BP 147/94
[2018-01-08 12:00] VITALS: BP 126/91
[2018-01-08 15:48] VITALS: BP 124/79
[2018-01-09 00:19] VITALS: BP 136/88
[2018-01-09 05:57] LABS: HEMATOCRIT 26.6 % (38.0-50.0); HEMOGLOBIN 7.8 G/DL (12.5-16.6); MCV 78.9 FL (86-99)
[2018-01-09 08:11] VITALS: BP 145/83
[2018-01-09 12:57] VITALS: BP 139/89
[2018-01-09 16:25] VITALS: BP 138/82
[2018-01-09 16:40] LABS: BASE EXCESS 7.7 mEq/L (-3 to +3); CARBOXY HGB 1.6 % (0-5); COMMENTS - BLOOD GASES A+C+; DEVICE HFNC; METHEMOGLOBIN 1.4 % (0-1.5); O2 FLOW 6 L/MIN; PCO2 43 mm Hg (35-45); PO2 52 mm Hg (80-100); SITE RR; pH 7.48 (7.35-7.45)
[2018-01-09 18:20] LABS: APPEARANCE CLEAR ((CLEAR)); BILIRUBIN NEGATIVE; BLOOD NEGATIVE; COLOR STRAW ((YELLOW)); GLUCOSE (STRIP) NEGATIVE; KETONES NEGATIVE; LEUKOCYTES NEGATIVE; NITRITE NEGATIVE; PROTEIN (STRIP) NEGATIVE; SPECIFIC GRAVITY 1.003 (1.000-1.030); UCUL ADDED? NO; UROBILINOGEN 0.2 MG/DL (0.2-1.0)
[2018-01-09 18:35] LABS: HEMATOCRIT 32.1 % (38.0-50.0); HEMOGLOBIN 9.4 G/DL (12.5-16.6); MCH 23.3 PG (29.0-34.0); MCHC 29.3 G/DL (30.0-36.0); MCV 79.5 FL (86-99); PLATELET COUNT 242 K/uL (156-360); RBC DIS.WIDTH-CV 20.9 % (11.8-14.6); RBC DIS.WIDTH-SD 58.4 % (39-53); RED BLOOD COUNT 4.04 M/uL (4.00-5.50); WHITE BLOOD COUNT 16.7 K/uL (4.1-10.2)
[2018-01-10 00:34] VITALS: BP 122/85
[2018-01-10 06:47] LABS: BASOPHIL (%) 0 % (0-1); EOSINOPHIL (%) 0.1 % (0-5); HEMATOCRIT 27.9 % (38.0-50.0); HEMOGLOBIN 8.3 G/DL (12.5-16.6); IMMATURE GRANULOCYTE (%) 0.3 % (0.0-0.7); LYMPHOCYTE (%) 6.9 % (15-42); LYMPHOCYTE COUNT 0.5 K/uL (1.0-2.8); MCH 23.3 PG (29.0-34.0); MCHC 29.7 G/DL (30.0-36.0); MCV 78.4 FL (86-99); MONOCYTE (%) 1.8 % (3-12); MONOCYTE COUNT 0.1 K/uL (0-0.8); NEUTROPHIL (%) 90.9 % (45-76); NEUTROPHIL COUNT 6.9 K/uL (1.8-6.4); PLATELET COUNT 185 K/uL (156-360); RBC DIS.WIDTH-CV 20.5 % (11.8-14.6); RBC DIS.WIDTH-SD 57.7 % (39-53); RED BLOOD COUNT 3.56 M/uL (4.00-5.50); WHITE BLOOD COUNT 7.6 K/uL (4.1-10.2)
[2018-01-10 07:18] LABS: ALBUMIN 2.6 G/DL (3.2-4.8); ALKALINE PHOSPHATASE 82 IU/L (3-129); ALT (GPT) 17 IU/L (3-49); AST (GOT) 10 IU/L (2-34); CHLORIDE 100 MEQ/L (99-109); CREATININE 0.4 MG/DL (0.6-1.3); GFR ESTIMATE (CALCULATED) > 59 mL/min/ (58.99-99999); GLUCOSE 88 mg/dL (70-99); SODIUM 140 MEQ/L (136-147); TOTAL PROTEIN 4.9 G/DL (6.4-8.3); UREA NITROGEN (BUN) 11 mg/dL (9-23)
[2018-01-10 07:22] LABS: TOTAL BILIRUBIN 0.5 MG/DL (0.0-1.0)
[2018-01-10 07:44] VITALS: BP 145/85
[2018-01-11 00:03] VITALS: BP 117/74
[2018-01-11 06:58] LABS: HEMATOCRIT 27.7 % (38.0-50.0); HEMOGLOBIN 8.3 G/DL (12.5-16.6); MCH 23.4 PG (29.0-34.0); MCV 78.2 FL (86-99); RBC DIS.WIDTH-CV 20.5 % (11.8-14.6); RBC DIS.WIDTH-SD 58.4 % (39-53); RED BLOOD COUNT 3.54 M/uL (4.00-5.50); WHITE BLOOD COUNT 7.4 K/uL (4.1-10.2)
[2018-01-11 07:01] LABS: PLATELET COUNT 260 K/uL (156-360)
[2018-01-11 07:38] VITALS: BP 119/79
[2018-01-11 07:40] LABS: ALBUMIN 2.5 G/DL (3.2-4.8); ALKALINE PHOSPHATASE 83 IU/L (3-129); ALT (GPT) 14 IU/L (3-49); AST (GOT) 8 IU/L (2-34); CHLORIDE 100 MEQ/L (99-109); CREATININE 0.4 MG/DL (0.6-1.3); GFR ESTIMATE (CALCULATED) > 59 mL/min/ (58.99-99999); POTASSIUM 4.3 MEQ/L (3.7-5.4); SODIUM 140 MEQ/L (136-147); TOTAL BILIRUBIN 0.5 MG/DL (0.0-1.0); UREA NITROGEN (BUN) 12 mg/dL (9-23)
[2018-01-11 07:41] LABS: GLUCOSE 211 mg/dL (70-99)
[2018-01-11 07:42] LABS: BASOPHIL (%) 0 % (0-1); EOSINOPHIL (%) 0 % (0-5); IMMATURE GRANULOCYTE (%) 0.4 % (0.0-0.7); LYMPHOCYTE (%) 2.3 % (15-42); LYMPHOCYTE COUNT 0.2 K/uL (1.0-2.8); MONOCYTE (%) 1.6 % (3-12); MONOCYTE COUNT 0.1 K/uL (0-0.8); NEUTROPHIL (%) 95.7 % (45-76); NEUTROPHIL COUNT 7.1 K/uL (1.8-6.4)
[2018-01-11 09:03] LABS: BASE EXCESS 13.3 mEq/L (-3 to +3); CARBOXY HGB 1.9 % (0-5); METHEMOGLOBIN 0.8 % (0-1.5); PO2 60 mm Hg (80-100); pH 7.49 (7.35-7.45)
[2018-01-11 09:04] LABS: BICARBONATE 38.1 mEq/L (22-26); COMMENTS - BLOOD GASES NAC+; DEVICE CANNULA; O2 FLOW 6 L/MIN; PCO2 50 mm Hg (35-45); SITE RR
[2018-01-11 12:00] VITALS: BP 119/79
[2018-01-11] MEDS ORDERED: AMOX TR-K CLV1 EAC4 PO (14:06)
== END 2018-01-11 17:34 | disposition hospice, home (50) | DRG 871 ==
LOC: EME 16:20 → EDOF 21:13 → 4WEST 21:13 → 4SOUTH 21:13 → 5SOUTH 21:13 → ENRESERV 21:14 → 4SOUTH 01-02 12:42 → CANRESERV 01-02 12:53 → ENRESERV 01-02 12:53 → 4SOUTH 01-02 15:22 → ENRESERV 01-03 08:06 → 4WEST 01-03 09:07 → ENRESERV 01-04 10:52 → 5SOUTH 01-04 15:55
PROVIDERS: Emergency Medicine; Hospitalist; Internal Medicine Critical Care Medicine; Student in an Organized Health Care Education/Training Program
PROC: 02HV33Z Insertion of Infusion Device into Superior Vena Cava, Percutaneous Approach (ICD-10-PCS; principal; 2018-01-03)
PROC: 5A09457 Assistance with Respiratory Ventilation, 24-96 Consecutive Hours, Continuous Positive Airway Pressure (ICD-10-PCS; 2018-01-03)
DX: A41.9 Sepsis, unspecified organism (principal); R65.20 Severe sepsis without septic shock; J96.21 Acute and chronic respiratory failure with hypoxia; J15.9 Unspecified bacterial pneumonia; Y95 Nosocomial condition; J69.0 Pneumonitis due to inhalation of food and vomit; J44.0 Chronic obstructive pulmonary disease with (acute) lower respiratory infection; J44.1 Chronic obstructive pulmonary disease with (acute) exacerbation; E43 Unspecified severe protein-calorie malnutrition; R62.7 Adult failure to thrive; Z68.1 Body mass index [BMI] 19.9 or less, adult; I11.0 Hypertensive heart disease with heart failure; I27.29 Other secondary pulmonary hypertension; I27.81 Cor pulmonale (chronic); I50.9 Heart failure, unspecified; D64.9 Anemia, unspecified; G89.29 Other chronic pain; F32.9 Major depressive disorder, single episode, unspecified; F41.9 Anxiety disorder, unspecified; K21.9 Gastro-esophageal reflux disease without esophagitis; R13.10 Dysphagia, unspecified; Z85.01 Personal history of malignant neoplasm of esophagus; Z86.718 Personal history of other venous thrombosis and embolism; Z87.891 Personal history of nicotine dependence; Z92.3 Personal history of irradiation; Z99.81 Dependence on supplemental oxygen; K44.9 Diaphragmatic hernia without obstruction or gangrene; M54.9 Dorsalgia, unspecified
CPT/HCPCS: 36600; 71045; 71046; 74018; 80048; 80053; 80200; 80202; 81003; 82803; 83605; 84484; 85014; 85018; 85025; 85027; 87040; 87070; 87205; 87449; 87502; 87641; 87801; 92526 GN; 92610 GN; 93005; 93306; 93970; 94002; 94640; 94640 76; 94667; 94668; 94760; 94799; 97530 GP; 99202; 99281; 99285; C1751; J0456; J0692; J1650; J1956; J2270; J2405; J2543; J2920; J2930; J3260; J3370; J7030; J7050; J7512

== ENCOUNTER → 2018-01-19 | Outpatient (CLI) | payer OTHER ==
[~2018-01-19] MED LIST changes: +BREO ELLIPTA I1 EACH IH; +INCRUSE ELLI62.5 MCG IH; +MORPHINE SULFAT90 MG PO; +OMEPRAZOLE20 MG PO
== END | disposition home or self-care (01) ==
LOC: PICC 13:00
DX: Z79.899 Other long term (current) drug therapy (principal)
CPT/HCPCS: 76937